=== PATIENT | male | born 1955 | race Caucasian/White ===

== ENCOUNTER → 2024-06-05 09:36 | Outpatient (REF) | payer MEDICARE, SELFPAY | LOC: MRI 3T 09:36 | PROVIDERS: ATTENDING PHYSICIAN Specialist; FAMILY PHYSICIAN Family Medicine | DX: M54.16 Radiculopathy, lumbar region (principal) | CPT/HCPCS: 72148 ==

== ENCOUNTER → 2024-09-08 13:32 | Outpatient (REF) | payer MEDICARE, SELFPAY ==
[2024-09-10 23:40] LABS: % Free Testosterone 0.8 % (1.6-2.9); Free Testosterone 29 pg/mL (47-244); Sex Hormone Binding Globulin 112 nmol/L (19-76); Total Testosterone 371 ng/dL (300-720)
== END ==
LOC: REG 13:32
PROVIDERS: ATTENDING PHYSICIAN Specialist; FAMILY PHYSICIAN Family Medicine
DX: R53.83 Other fatigue (principal)
CPT/HCPCS: 36415; 84270; 84402; 84403

== ENCOUNTER → 2025-04-02 06:33 | Outpatient (REF) | payer MEDICARE, SELFPAY | LOC: PAVMRI 06:33 | PROVIDERS: ATTENDING PHYSICIAN Nurse Practitioner; FAMILY PHYSICIAN Family Medicine | DX: M54.50 Low back pain, unspecified (principal); M99.63 Osseous and subluxation stenosis of intervertebral foramina of lumbar region; M51.362 Other intervertebral disc degeneration, lumbar region with discogenic back pain and lower extremity pain | CPT/HCPCS: 72148 ==